=== PATIENT | female | born 1975 | race Caucasian/White ===

== ENCOUNTER 2017-05-28 13:03 | Emergency (ER) | payer OTHER ==
[~2017-05-28] VITALS: Ht 162.6 cm; Wt 79.4 kg
[~2017-05-28 13:03] MED LIST: AMOXIL500 MG PO
[2017-05-28] MEDS ORDERED: KEFLEX 500MG.500 MG PO (14:38)
[2017-05-28] MEDS ORDERED: NAPROXEN SODIU500 MG PO (14:38)
[2017-05-28] MEDS ORDERED: BACTRIM DS 8001 TA1 PO (14:38)
--- NOTE | 2017-05-28 14:39 | Emergency Room Report ---
History of Present Illness Time Seen by MD Kurtz Presenting Problem in Triage Pt arrived:Walked Presenting Problem:PT REPORTS PAIN IN MIDSTERNAL AREA OF CHEST R/T RAISED KNOT LIKE AREA. PT REPORTS AREA HAS BEEN PRESENT X3 DAYS, UNKNOWN ORIGIN Onset of symptoms date/time:05/25/17/ or onset unknown for:MEDICAL HX UNKNOWN Treatment Prior to Arrival: [employer]ER Provided by: Sepsis Risk Assessment: Temp: 98.2 B/P: 115/80 MAP: 91 Pulse: 74 Resp: 18 Recent fever? N Clinical Suspician of Infection? N Mental Status: 1 - Regular (Normal Baseline) Sepsis Risk:Low Sepsis Risk Have you (or family members/close friends) recently traveled outside the [place]? N If Yes, where/when: Have you had exposure to infectious disease within the past month? N TB? Other? Specify: Patient reports tenderness, redness, swelling to midsternum for past few days; no fever or vomiting; no relief with Ibuprofen, last dose yesterday. ALLERGIES Coded Allergies: tramadol ("BUGS CRAWLING UNDER SKIN", ITCHING 05/28/17) Home Medications Reported Medications No Known Home Medications History Medical History General CAD? No Angina: No MS: No Hypertension? No Hyperlipidemia? No CHF? No DVT? No PE? No COPD? No Asthma? No Anemia? No GERD? No Gastric ulcers? No GI Bleed? No Hernia? No Thyroid Problems? No Hypothyroidism? No CVA? No Seizures? No Diabetes? No Renal Insuffiency? No End Stage Renal Disease? No UTI? No Stones? No GB Disease: Yes Nephritic Syndrome? No Asplenia? No Hepatitis? No Sickle Cell Disease? No Arthritis? No Migraines? No Cataracts? No Glaucoma? No MRSA? No HIV? No TB? No Anxiety? No Depression? No Cancer? No More? 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 Social History Smoking Hx Smoker: Current Every Day Smoker Tobacco: Yes Type Cigarettes Packs/day < 1 Pack Alcohol Alcohol: Yes Review of Systems All Other Systems Reviewed and Negative Skin see HPI Physical Exam Vital Signs Vital Signs Date Time Temp Pulse Resp B/P Pulse O2 O2 Flow FiO2 Ox Delivery Rate 05/28 1313 98.2 74 18 115/80 100 General Appearance normal appearance, WD/WN, no apparent distress Eye Exam - bilateral eye normal exam, bilateral eye PERRL, bilateral eye EOMI Neck normal inspection, non-tender, supple, full range of motion Respiratory Status Yes: trachea midline, chest symmetrical, tender on palpation. No: respiratory distress, non tender chest, use of accessory muscles, pain on inspiration, pain on expiration, productive cough, non productive cough (minor abscess sternum). Lung Sounds bilateral: normal breath sounds, lungs clear. Cardiovascular normal exam, regular rate/rhythm, no peripheral edema, no gallop, no JVD, no murmur, normal peripheral pulses Extremities normal inspection Strength 5 Upper Ext (L), 5 Upper Ext (R), 5 Lower Ext (L), 5 Lower Ext (R) Neurologic alert, normal exam, no motor/sensory deficits, oriented x 3 Glascow Coma Scale Glascow Coma Scale Response Value EYE response: 4 Spontaneously 4 MOTOR response: 6 OBEYS 6 VERBAL response: 5 Oriented & Converses 5 Total 15 Skin intact, small abscess, indurated, midsternal area, not fluctuant, not pointed, no streaks, is about 0.5 cm, not surfaced enough for I and D. Lymphatic no adenopathy Medical Decision Making LABS/Meds/Orders Pt receiving controlled substance in ED? No Results/Orders Current Medication Orders Sig/Deshawn Start time Last Medication Dose Route Stop Time Status Admin Ketorolac 60 MG ONCE ONE 05/28 1430 DC Tromethamine IM 05/28 1431 Departure Departure Time of Disposition 1436 Disposition DC Home or Self Care(routine) Clinical Impression Primary Impression: Abscess Condition STABLE Patient Instructions Boil Additional Instructions Rx Keflex, Bactrim, Naproxen, see MD of choice on list provided, one to two days for recheck. continue moist heat. Discharge Counseling Counseled pt/family regarding diagnosis, test results, medications/RX, home care, follow up needs Prescriptions Current Visit Scripts NAPROXEN (NAPROXEN 500MG TAB) 500 MG PO BID #20 TAB CEPHALEXIN (Keflex 500MG Capsule) 500 MG PO QID #40 CAP SULFAMETHOXAZOLE W/TRIMETHOPRI (Bactrim Ds Tab) 1 TABLET PO BID #20 TAB ED Critical Care Critical Care No at 1438
[2017-05-28 15:02] VITALS: BP 115/80
== END 2017-05-28 15:02 | disposition home or self-care (01) ==
LOC: ER 13:03
DX: L02.213 Cutaneous abscess of chest wall (principal); F17.210 Nicotine dependence, cigarettes, uncomplicated